=== PATIENT | female | born 1970 | race Caucasian/White ===

== ENCOUNTER 2021-03-01 08:30 | Inpatient (IN) | payer OTHER ==
[~2021-03-01] VITALS: Ht 165.1 cm; Wt 70.3 kg
[2021-03-08] MEDS ORDERED: INDAPAMIDE2.5 MG (07:55)
[2021-03-10] MEDS ORDERED: PERCOCET 5-3251 EACH PO (07:21)
== END 2021-03-10 08:14 | disposition home or self-care (01) | DRG 743 ==
LOC: ADM 08:30 → O/R 03-08 06:48 → OB/GYN 03-08 07:00 → CIR.AMB 03-08 08:30 → OB/GYN 03-08 08:30 → EDSTATUS 03-08 08:30 → OB/GYN 03-08 16:33
PROVIDERS: ADMIT Specialist; ATTEND Specialist
PROC: 0UB70ZZ Excision of Bilateral Fallopian Tubes, Open Approach (ICD-10-PCS; 2021-03-08)
PROC: 0UT90ZZ Resection of Uterus, Open Approach (ICD-10-PCS; principal; 2021-03-08 07:00)
DX: D25.1 Intramural leiomyoma of uterus (principal); N72 Inflammatory disease of cervix uteri; D25.2 Subserosal leiomyoma of uterus; N83.8 Other noninflammatory disorders of ovary, fallopian tube and broad ligament; N92.1 Excessive and frequent menstruation with irregular cycle; E03.9 Hypothyroidism, unspecified